=== PATIENT | female | born 1970 | race Two or more races ===

== ENCOUNTER 2019-04-27 18:46 | Emergency (ER) | payer OTHER ==
[~2019-04-27] VITALS: Ht 154.9 cm; Wt 103.5 kg
[~2019-04-27 18:46] MED LIST: DENIES
--- NOTE | 2019-04-27 19:05 | NUR ---
LABS DRAWN. PT UNDERSTANDS POC. INSTRUCTED ON CLEAN CATCH URINE SAMPLE.
[2019-04-27 19:10] LABS: BASOPHILS # (AUTO) 0.02 x10^3/uL (0-0.1); BASOPHILS % (AUTO) 0 % (0-1); EOSINOPHILS # (AUTO) 0.08 x10^3/uL (0-0.4); EOSINOPHILS % (AUTO) 1 % (1-7); LYMPHOCYTES # (AUTO) 2.88 x10^3/uL (1-3.4); LYMPHOCYTES % (AUTO) 38 % (22-44); MD NO; MEAN CORPUSCULAR HEMOGLOBIN 29.8 pg (27.0-34.8); MEAN CORPUSCULAR HGB CONC 32.6 g/dL (32.4-35.8); MEAN CORPUSCULAR VOLUME 91.4 fL (80-100); MEAN PLATELET VOLUME 9.7 fL (7.4-10.4); MONOCYTES # (AUTO) 0.57 x10^3/uL (0.2-0.8); MONOCYTES % (AUTO) 8 % (2-9); NEUTROPHILS # (AUTO) 3.99 x10^3/uL (1.8-6.8); NEUTROPHILS % (AUTO) 53 % (42-75); PLATELET COUNT 200 x10^3/uL (130-400); RED BLOOD COUNT 5.42 x10^6/uL (3.82-5.3); RED CELL DISTRIBUTION WIDTH 13.1 % (9.6-15.2)
[2019-04-27 19:21] LABS: ALANINE AMINOTRANSFERASE 45 U/L (12-78); ALBUMIN 4.1 g/dL (3.4-5.0); ANION GAP 7 mmol/L (5-15); CALCIUM 9.1 mg/dL (8.5-10.1); CHLORIDE 109 mmol/L (98-107); CREATININE 0.79 mg/dL (0.55-1.02)
[2019-04-27 19:23] LABS: ALKALINE PHOSPHATASE 71 U/L (45-117); BILIRUBIN,TOTAL 0.7 mg/dL (0.2-1.0); TOTAL PROTEIN 7.9 g/dL (6.4-8.2)
[2019-04-27 20:09] LABS: CULTURE INDICATED? NO; MICROSCOPIC NOT IND
[2019-04-27 20:25] LABS: HCT (SEDRATE) 49.6 % (34.6-47.8)
--- NOTE | 2019-04-27 20:59 | NUR ---
ERP WAS IN FOR RECHECK.
[2019-04-27 21:15] VITALS: BP 139/99
--- NOTE | 2019-04-27 21:25 | NUR ---
D/C INSTRUCTIONS & F/U APPT RV'WD WITH PT, SHE VERBALIZES UNDERSTANDING. ENCOURAGED PT TO RETURN IF SYMPTOMS NOT IMPROVING. PT AMBULATED OUT OF ED WITHOUT DIFFICULTY.
== END 2019-04-27 21:28 | disposition home or self-care (01) ==
LOC: ED 19:47
DX: M79.10 Myalgia, unspecified site (principal); H92.01 Otalgia, right ear; Z86.19 Personal history of other infectious and parasitic diseases; Z87.891 Personal history of nicotine dependence
CPT/HCPCS: 36415; 80053; 81003; 85025; 85651; 99283